=== PATIENT | female | born 1965 | race Two or more races ===

== ENCOUNTER 2024-09-25 08:03 | Day surgery (SDC) | payer MEDICAID ==
[2024-09-20 12:11] LABS: Hematocrit 41.6 % (36.0-46.0); Hemoglobin 14.4 g/dL (12.2-16.2); Mean Corpuscular Hemoglobin 30.7 pg (28.0-32.0); Mean Corpuscular Volume 88.6 fL (80.0-100.0); Nucleated Red Blood Cells % 0.0 %
[2024-09-20 12:21] LABS: INR 0.99 (0.9-1.15); Partial Thromboplastin Time 27.0 SEC (24.5-34.5); Prothrombin Time 10.5 sec (9.3-11.8)
[2024-09-20 12:29] LABS: Alanine Aminotransferase 24 U/L (7-40); Albumin 4.6 g/dL (3.2-4.8); Alkaline Phosphatase 57 U/L (46-116); Anion Gap 8 (5-15); BUN/Creatinine Ratio 20.7 (10.0-20.0); Blood Urea Nitrogen 19 mg/dL (9-23); Calcium 9.4 mg/dL (8.7-10.4); Carbon Dioxide 27 mmol/L (20-31); Glucose 92 mg/dL (74-106); Potassium 3.8 mmol/L (3.5-5.1); Sodium 144 mmol/L (136-145); Total Protein 7.0 g/dL (5.7-8.2)
[2024-09-20 12:30] LABS: Bilirubin, Total 0.2 mg/dL (0.2-1.0); Chloride 109 mmol/L (98-107)
[2024-09-20 12:36] LABS: Urine Protein, UAD Negative (Negative)
[~2024-09-25] VITALS: Ht 165.1 cm; Wt 136.1 kg
[~2024-09-25 08:03] MED LIST: ACET-1304 PO; ALBUAER3 IN; ALL100T PO; BECL40AE11 IN; BENA40TA71 PO; BIOT5TAB3 PO; CETI10TA2 PO; CHOL500046 PO; FAMO-68 PO; HYDR12.59 PO; LEVO-848 PO; LIDO5DIS21 TOP; METH-1182 PO; MULT1CAP35 PO; PANT40TA2 PO; PROB1CAP51 PO; SIMV10TA20 PO
[2024-09-25] MEDS ORDERED: PROPRANOLOL HCL 1 MG/ML VIAL IV ONE (08:04)
[2024-09-25] MEDS ORDERED: ceFAZolin 2 GM/D5W50ml 50 ML IV ONE (08:17)
[2024-09-25] MEDS ORDERED: ONDANSETRON HCL 4 MG/2 ML VIAL ONE (08:41)
[2024-09-25] MEDS ORDERED: KETOROLAC TROMETH 30 MG/ML 1ML VIAL ONE (08:41)
[2024-09-25] MEDS ORDERED: LIDOCAINE 1% INJ PF 5ML AMP ONE (08:41)
[2024-09-25] MEDS ORDERED: PROPOFOL 10 MG/ML 20 ML IV ONE ×2 (08:42→09:20)
[2024-09-25] MEDS ORDERED: GLYCOPYRROLATE 0.2 MG/ML 1ML VIAL ONE (08:42)
[2024-09-25] MEDS ORDERED: KETAMINE 50mg/ML 1ml syringe ONE (08:42)
[2024-09-25] MEDS ORDERED: ceFAZolin 1GM VL ONE (09:07)
[2024-09-25] MEDS: BUPIVACAINE 0.5% P/F INJ 10 ML VIAL ONE (09:15)
[2024-09-25 09:29] VITALS: PULSE 65; RESP 12; O2SAT 100
[2024-09-25 09:30] VITALS: TEMP 97.5
--- NOTE | 2024-09-25 09:37 | DVHOP2 ---
Operative Report - 2 Report Details Date: 09/25/24 Preop Diagnosis: 1. Right foot neuroma 2. Right foot pain Postop Diagnosis: Right foot neuroma Surgeon: Caleb Verma MD Anesthesiologist: See anesthesia Anesthesia: Mac Consent: The patient was informed of the risks and benefits of the procedure. These include but are not limited to complications of anesthesia, postoperative infection, incomplete relief of symptoms, recurrence of symptoms, damage to blood vessels, nerves and tendons, deep venous thrombosis, pulmonary embolism and possible need for repeat surgery in the future. Complications: None Estimated Blood Loss: Minimal Fluids: See anesthesia Findings: Consistent with diagnosis Indications for Surgery: Worsening right foot pain Name of Procedure Performed 1. Right foot neuroma excision (41022) 2. Right foot nerve decompression (34165) Procedure Details Procedure Details: PRE-PROCEDURE INFORMATION: In the pre-op holding area, the extremity to be operated on was clearly marked and the patient verified correct laterality of the marking. The patient was transferred to the OR table and placed in a supine position. A timeout was performed in which identification of the correct patient, procedure, location, and materials was done. The right foot and leg were prepped and draped in normal sterile fashion. The foot and leg were exsanguinated and the ankle Esmarch was applied. DESCRIPTION OF PROCEDURE: Attention was directed to the right dorsal foot where a 5 cm linear incision was made over the 3rd and 4th metatarsals. The incision was deepened through blunt dissection. Care was taken to avoid any neurovascular and tendinous structures. Dissection was carried down to the level of the intermetatarsal ligament. The intermetatarsal ligament was then transected to allow for decompression of the nerve. At this point it was noted that there was hourglassing of the nerve and significant size of the interdi gital nerve. The distal branches were identified and the nerve was excised as proximal as possible. The area was then washed out with saline and closed with 3-0 Monocryl and 4-0 nylon. All surgical wounds were irrigated copiously with saline and closed in layers with the aforementioned suture material. A dry sterile dressing was placed on the surgical extremity. The patient was placed in a postop POSTOPERATIVE INFORMATION: The patient tolerated the above noted procedure and anesthesia well and was transferred to the PACU with vital signs stable, and vascular status intact with capillary refill intact to all digits. Postoperative instructions reviewed in detail with the patient with written instructions provided. Patient will return to clinic in approximately 10-14 days for first postoperative visit. Patient has the number of the clinic and was instructed to call prior to that time should any problems, questions, or concerns arise. Specimen: Right foot neuroma Condition Good Disposition Home Visit Coding Podiatry Date of Service if different f: Sep 25, 2024 Billing Provider: CALEB VERMA DPM Podiatry Common Visit Codes: PROCEDURE ONLY CALEB VERMA DPM Sep 25, 2024 09:37
[2024-09-25] MEDS ORDERED: hydrALAZINE HCL 20 MG/ML VL IV PRN (09:45)
[2024-09-25] MEDS ORDERED: NALOXONE HCL 0.4 MG/ML VIAL IV PRN (09:45)
[2024-09-25] MEDS ORDERED: fentaNYL CITRATE 100 MCG/2 ML VL IV PRN (09:45)
[2024-09-25] MEDS ORDERED: FLUMAZENIL 0.1 MG/ML INJ 10ML MDV IV PRN (09:45)
[2024-09-25] MEDS ORDERED: HYDROmorphone HCL 2 MG/ML VL/or syr IV PRN (09:45)
[2024-09-25] MEDS ORDERED: ONDANSETRON HCL 4 MG/2 ML VIAL IV PRN (09:45)
[2024-09-25 10:02] VITALS: PULSE 71; RESP 12; O2SAT 99
[2024-09-25 10:45] VITALS: BP 119/57; PULSE 70; RESP 13; O2SAT 100
== END 2024-09-25 11:20 | disposition home or self-care (01) ==
LOC: SUR 08:03
PROVIDERS: ATTEND Podiatrist
DX: G57.63 Lesion of plantar nerve, bilateral lower limbs (principal); I10 Essential (primary) hypertension; E03.9 Hypothyroidism, unspecified; J45.909 Unspecified asthma, uncomplicated; K21.9 Gastro-esophageal reflux disease without esophagitis; Z98.890 Other specified postprocedural states; Z79.899 Other long term (current) drug therapy; Z90.49 Acquired absence of other specified parts of digestive tract
CPT/HCPCS: 28080; 36415; 64704; 80053; 81001; 85025; 85610; 85730; 88305; J0690; J1100; J1800; J1885; J2405; J2704; J3490